=== PATIENT | male | born 1945 | race Caucasian/White ===

== ENCOUNTER 2022-02-18 12:50 | Emergency (ER) | payer MEDICARE, OTHER ==
[2022-02-18 14:31] LABS: HEMOGLOBIN 5.4 gm/dl (14.0-17.5)
[2022-02-18 14:33] LABS: WHITE BLOOD COUNT 3.8 K/UL (4.5-11.0)
[2022-02-19 05:42] LABS: HEMOGLOBIN 7.3 gm/dl (14.0-17.5); RED BLOOD COUNT 2.75 M/UL (4.20-5.50); WHITE BLOOD COUNT 4.2 K/UL (4.5-11.0)
[2022-02-19 06:17] LABS: BUN/CREATININE RATIO 24 (0-10)
== END 2022-02-19 12:10 | disposition short-term general hospital (02) ==
LOC: ER1 12:50
PROVIDERS: Emergency Medicine; Internal Medicine
DX: D64.9 Anemia, unspecified (principal); E11.649 Type 2 diabetes mellitus with hypoglycemia without coma; Z20.822 Contact with and (suspected) exposure to COVID-19; I11.0 Hypertensive heart disease with heart failure; I50.9 Heart failure, unspecified; I48.91 Unspecified atrial fibrillation; I25.10 Atherosclerotic heart disease of native coronary artery without angina pectoris; E78.5 Hyperlipidemia, unspecified; K21.9 Gastro-esophageal reflux disease without esophagitis; Z79.01 Long term (current) use of anticoagulants; Z95.0 Presence of cardiac pacemaker; Z87.891 Personal history of nicotine dependence; Z95.2 Presence of prosthetic heart valve
CPT/HCPCS: 0240U; 36430; 71045; 80053; 81001; 82270; 82550; 82553; 82607; 82746; 82962; 83540; 83550; 83605; 83880; 84484; 85007; 85027; 85610; 85730; 86850; 86900; 86901; 86920; 87040; 93005; 96374; 96375; 99285; C9113; J1335; J1940; P9016; Q9967